=== PATIENT | male | born 1965 | race Caucasian/White ===

== ENCOUNTER 2022-01-15 19:36 | Emergency (ER) | payer MEDICARE, MEDICAID, SELFPAY ==
--- NOTE | 2022-01-15 19:41 | ED.MALEGU ---
HPI - Male Genitourinary General Chief complaint: Urogenital-Male Stated complaint: poss uti Time Seen by Provider: 01/15/22 19:41 Source: patient Mode of arrival: ambulatory Limitations: no limitations History of Present Illness HPI Narrative: Mr. Chacon is a 56-year-old male patient presenting to the clinic today for possible UTI. Caregiver reports over the last 1 to 2 days he has become more combative and confused. He has a history of dementia and they have just drove here to visit family from [facility]. He denies any pain or fevers however he has urinary frequency and urgency and change in color of his urine per caregiver. He denies any back pain, abdominal pain, or bladder pain. Related Data Home Medications Medication Instructions Recorded Confirmed Unable to Obtain Home Medications 01/15/22 01/15/22 Allergies Allergy/AdvReac Type Severity Reaction Status Date / Time Penicillins Allergy Intermediate Hives Verified 01/15/22 20:05 Review of Systems Review of Systems: Pertinent positives per HPI. Patient denies any fever, chills, rash, headache, visual changes, dizziness, cough, runny nose, sore throat, shortness of breath, chest pain, palpitations, nausea, vomiting, diarrhea, constipation, abdominal pain. PMFSH Comments At the time of my signature, I reviewed and agree with the nursing past medical, surgical, social, and family history. There is no relevant family history pertinent to the patient complaint. Exam Narrative: General: Well-developed, well nourished, in no apparent distress. Head: Normocephalic, atraumatic. Cardio: Regular rate and rhythm, s1 and s2 normal, no murmur appreciated. Resp: Clear to auscultation bilaterally, no rhonchi, rales, wheezing or rubs. Abdomen: Soft, pliable, bowel sounds present in all quadrants, non-tender to palpation, no organomegly, no CVAT tenderness. Course Course Emergency Course: Portions of this record may have been created with voice recognition software. Level of Care: Express Care Visit Vital Signs Vital signs: Vital Signs Temperature 36.6 C 01/15/22 19:46 Pulse Rate 70 01/15/22 19:46 Respiratory Rate 20 01/15/22 19:46 Blood Pressure 156/88 H 01/15/22 19:46 Pulse Oximetry 95 08/03/22 19:46 Oxygen Delivery Room Air 01/15/22 19:46 Temperature 36.6 C 01/15/22 19:46 Pulse Rate 70 01/15/22 19:46 Respiratory Rate 20 01/15/22 19:46 Blood Pressure 156/88 H 01/15/22 19:46 Pulse Oximetry 95 01/15/22 19:46 Oxygen Delivery Room Air 01/15/22 19:46 Vital signs reviewed MDM - Male Genitourinary MDM Narrative Medical decision making narrative: At the time of visit patient is resting comfortably on the exam table. UA obtained negative for any signs of infection however he does have a trace of blood and ketones in his urine. Recommend increasing fluids and keeping well-hydrated. I suspect his altered mental status is due to his dementia and change of environment. Supportive measures were discussed with the patient's caregiver and they voiced understanding of discharge instructions and agreed to the treatment plan. Differential Diagnosis Differential diagnosis: Likely urinary tract infection and other (Altered mental status, confusion, increased combativeness) Lab Data Labs: Urine Glucose Negative Reference Range: Negative Urine Bilirubin Negative Reference Range: Negative Urine Ketone Trace Reference Range: Negative Urine Specific [place] 1.020 Reference Range:1.001-1.035 Urine Blood Trace Reference Range: Negative * * Urine pH
[2022-01-15 19:46] VITALS: BP 156/88; PULSE 70; RESP 20; TEMP 36.6; O2SAT 95
== END 2022-01-15 20:38 | disposition home or self-care (01) ==
LOC: EXPBETH 19:44
PROVIDERS: Emergency Provider Nurse Practitioner Family
DX: R41.82 Altered mental status, unspecified (principal); G30.9 Alzheimer's disease, unspecified; F02.80 Dementia in other diseases classified elsewhere, unspecified severity, without behavioral disturbance, psychotic disturbance, mood disturbance, and anxiety; Z86.73 Personal history of transient ischemic attack (TIA), and cerebral infarction without residual deficits; Z95.5 Presence of coronary angioplasty implant and graft; I25.2 Old myocardial infarction; H54.8 Legal blindness, as defined in USA; Z90.2 Acquired absence of lung [part of]
CPT/HCPCS: 81003; 99212; G0463